=== PATIENT | female | born 1945 | race Caucasian/White ===

== ENCOUNTER → 2017-04-25 | Outpatient (REF) | payer MEDICARE, OTHER ==
[2017-04-25 14:05] LABS: APPEARANCE, URINE HAZY (CLEAR); BACTERIA, URINE AUTO NEGATIVE (NEGATIVE); BILIRUBIN, URINE AUTO NEGATIVE (NEGATIVE); BLOOD, URINE BLOOD NEGATIVE (NEGATIVE); COLOR, URINE YELLOW (YELLOW); GLUCOSE, URINE (UA) AUTO NEGATIVE (NEGATIVE); KETONE, URINE AUTO TRACE mg/dL (NEGATIVE); LEUKOCYTE ESTERASE, URINE AUTO 1+ (NEGATIVE); MUCUS, URINE SMALL (NEGATIVE); NITRITE, URINE AUTO NEGATIVE (NEGATIVE); PROTEIN, URINE AUTO NEGATIVE (NEGATIVE); RBC, URINE AUTO 1 /HPF (0-3); SPECIFIC GRAVITY URINE AUTO 1.021 (1.002-1.035); SQUAMOUS EPITHELIAL CELL UR AU 4 /HPF (0-6); UROBILINOGEN, URINE AUTO 0.2 mg/dL (0.0-2.0); WBC, URINE AUTO 2 /HPF (0-3)
== END ==
LOC: M SMT 13:16
DX: N39.41 Urge incontinence (principal)
CPT/HCPCS: 81001

== ENCOUNTER → 2017-04-30 | Outpatient (CLI) | payer MEDICARE, OTHER | LOC: M RAD 12:22 | DX: N39.41 Urge incontinence (principal); Z87.442 Personal history of urinary calculi; N28.1 Cyst of kidney, acquired | CPT/HCPCS: 76775 ==

== ENCOUNTER → 2017-05-19 | Outpatient (REF) | payer MEDICARE, OTHER | LOC: M SMT 17:05 | DX: N39.0 Urinary tract infection, site not specified (principal) | CPT/HCPCS: 87086 ==

== ENCOUNTER → 2017-07-31 | Outpatient (CLI) | payer MEDICARE, OTHER | LOC: M WUC 12:22 | DX: S70.02XA Contusion of left hip, initial encounter (principal); X58.XXXA Exposure to other specified factors, initial encounter; Y92.9 Unspecified place or not applicable | CPT/HCPCS: 73502 ==

== ENCOUNTER → 2017-12-05 | Outpatient (REF) | payer MEDICARE, OTHER ==
[2017-12-05 14:04] LABS: APPEARANCE, URINE CLEAR (CLEAR); BACTERIA, URINE AUTO NEGATIVE (NEGATIVE); BILIRUBIN, URINE AUTO NEGATIVE (NEGATIVE); BLOOD, URINE BLOOD NEGATIVE (NEGATIVE); COLOR, URINE YELLOW (YELLOW); GLUCOSE, URINE (UA) AUTO NEGATIVE (NEGATIVE); KETONE, URINE AUTO NEGATIVE (NEGATIVE); LEUKOCYTE ESTERASE, URINE AUTO NEGATIVE (NEGATIVE); NITRITE, URINE AUTO NEGATIVE (NEGATIVE); PROTEIN, URINE AUTO NEGATIVE (NEGATIVE); RBC, URINE AUTO 1 /HPF (0-3); SPECIFIC GRAVITY URINE AUTO 1.016 (1.002-1.035); SQUAMOUS EPITHELIAL CELL UR AU 1 /HPF (0-6); UROBILINOGEN, URINE AUTO 0.2 mg/dL (0.0-2.0); WBC, URINE AUTO 1 /HPF (0-3)
== END ==
LOC: M SMT 13:42
DX: R35.0 Frequency of micturition (principal)
CPT/HCPCS: 81001

== ENCOUNTER → 2018-01-27 | Outpatient (REF) | payer MEDICARE, OTHER ==
[2018-01-27 14:05] LABS: DRVV SCREEN 34.8 SEC; FOLATE 14.4 NG/ML; RHEUMATOID FACTOR QUANT < 10.0 IU/ML (<15.0); TOTAL PROTEIN 6.8 GM/DL (6.4-8.2); VITAMIN B12 LEVEL 626 PG/ML
[2018-01-27 14:12] LABS: PTT LUPUS TYPE ANTICOAG SCREEN 0.9 (0-1.2)
[2018-01-27 14:16] LABS: ERYTHROCYTE SEDIMENTATION RATE 11 mm/hr (0-30)
[2018-01-28 08:09] LABS: ALBUMIN 3.99 GM/DL (3.29-5.55); ALBUMIN % 58.7 % (55.8-66.1); ALPHA-1-GLOBULIN % 4.3 % (2.9-4.9); ALPHA-1-GLOBULINS 0.29 GM/DL (0.17-0.41); ALPHA-2-GLOBULINS 0.75 GM/DL (0.42-0.99); ALPHA-2-GLOBULINS % 11.1 % (7.1-11.8)
[2018-01-28 08:11] LABS: BETA-1-GLOBULINS 0.41 GM/DL (0.28-0.60); BETA-2-GLOBULINS 0.41 GM/DL (0.19-0.55); BETA-2-GLOBULINS % 6.1 % (3.2-6.5); GAMMA GLOBULIN % 13.8 % (11.1-18.8); GAMMA GLOBULINS 0.94 GM/DL (0.65-1.58)
[2018-01-31 10:10] LABS: ANTINUCLEAR ANTIBODIES DIRECT Negative (Negative); VITAMIN B6,PYRIDOXAL PHOSPHATE 8.2 ug/L (2.0-32.8); VITAMIN E(ALPHA TOCOPHEROL) 9.2 mg/L (9.0-29.0); VITAMIN E(GAMMA TOCOPHEROL) 1.4 mg/L (0.5-4.9)
== END ==
LOC: M LABNEURO 10:29
DX: M54.5 Low back pain (principal); F09 Unspecified mental disorder due to known physiological condition
CPT/HCPCS: 82746

== ENCOUNTER → 2018-08-06 | Outpatient (REF) | payer MEDICARE, OTHER ==
[2018-08-06 13:30] LABS: INR 0.93; PARTIAL THROMBOPLASTIN TIME 28.4 SECONDS (25.4-37.6); PROTHROMBIN TIME 12.6 SECONDS (12.1-14.4)
== END ==
LOC: M LAB REF 12:29
PROVIDERS: ATTEND Internal Medicine
DX: Z01.818 Encounter for other preprocedural examination (principal)

== ENCOUNTER → 2018-08-11 | Outpatient (REF) | payer MEDICARE, OTHER | LOC: M LAB REF 12:24 | PROVIDERS: ATTEND Nurse Practitioner Family | DX: N39.0 Urinary tract infection, site not specified (principal) ==

== ENCOUNTER → 2018-10-15 | Outpatient (REF) | payer MEDICARE, OTHER ==
[2018-10-15 13:28] LABS: APPEARANCE, URINE CLEAR (CLEAR); BACTERIA, URINE AUTO NEGATIVE (NEGATIVE); BILIRUBIN, URINE AUTO NEGATIVE (NEGATIVE); BLOOD, URINE BLOOD NEGATIVE (NEGATIVE); COLOR, URINE YELLOW (YELLOW); GLUCOSE, URINE (UA) AUTO NEGATIVE (NEGATIVE); KETONE, URINE AUTO TRACE mg/dL (NEGATIVE); LEUKOCYTE ESTERASE, URINE AUTO NEGATIVE (NEGATIVE); NITRITE, URINE AUTO NEGATIVE (NEGATIVE); PROTEIN, URINE AUTO NEGATIVE (NEGATIVE); RBC, URINE AUTO 0 /HPF (0-3); SPECIFIC GRAVITY URINE AUTO 1.017 (1.002-1.035); SQUAMOUS EPITHELIAL CELL UR AU 1 /HPF (0-6); UROBILINOGEN, URINE AUTO 0.2 mg/dL (0.0-2.0); WBC, URINE AUTO 1 /HPF (0-3)
== END ==
LOC: M SMT 13:04
PROVIDERS: ATTEND Nurse Practitioner Women's Health
DX: R35.0 Frequency of micturition (principal)
CPT/HCPCS: 51798; 81001; 87086; G0463

== ENCOUNTER → 2019-07-26 | Outpatient (CLI) | payer MEDICARE, OTHER ==
--- NOTE | 2019-07-26 16:43 | REP ---
RIGHT SMALL FINGER SERIES: FOUR VIEWS. HISTORY: Contusion. FINDINGS: Four views of the right small finger demonstrate mild soft tissue swelling about the PIP joint. There is osteoarthritic spurring at both the PIP and DIP joints of the small finger. No fractures seen. No opaque foreign body is noted. IMPRESSION: No evidence of fracture or opaque foreign body. Mild osteoarthritic spurring. Electronically Signed by Charles Hayward MD 07/26/2019 05:04 P
== END ==
LOC: M WUC 14:14
PROVIDERS: ATTEND Physician Assistant
DX: S60.051A Contusion of right little finger without damage to nail, initial encounter (principal); X58.XXXA Exposure to other specified factors, initial encounter; Y92.9 Unspecified place or not applicable; M19.041 Primary osteoarthritis, right hand

== ENCOUNTER → 2020-03-24 | Outpatient (CLI) | payer SELFPAY | LOC: M LABSMTC 10:46 | PROVIDERS: ATTEND Pediatrics | DX: Z20.822 Contact with and (suspected) exposure to COVID-19 (principal) ==

== ENCOUNTER → 2020-10-13 | Outpatient (CLI) | payer MEDICARE, OTHER ==
--- NOTE | 2020-10-13 12:38 | REP ---
INDICATION: CUNTUSION. COMPARISON: Abdomen/pelvis CT dated 07/07/2015. TECHNIQUE: There are two views. FINDINGS: There is no fracture or dislocation. Mineralization is normal. Joint space is unremarkable. No femoral head deformity. No calcifications or foreign bodies. IMPRESSION: Essentially negative plain film study of the right hip. <Electronically signed by Colton Kuo > 10/13/20 [id number]
== END ==
LOC: M WUC 10:35
PROVIDERS: ATTEND Physician Assistant
DX: S70.01XA Contusion of right hip, initial encounter (principal); X58.XXXA Exposure to other specified factors, initial encounter; Y92.9 Unspecified place or not applicable

== ENCOUNTER → 2020-11-16 | Outpatient (REF) | payer MEDICARE, OTHER ==
[2020-11-16 17:36] LABS: APPEARANCE, URINE HAZY (CLEAR); BACTERIA, URINE AUTO NEGATIVE (NEGATIVE); BILIRUBIN, URINE AUTO NEGATIVE (NEGATIVE); BLOOD, URINE BLOOD NEGATIVE (NEGATIVE); COLOR, URINE YELLOW (YELLOW); GLUCOSE, URINE (UA) AUTO NEGATIVE (NEGATIVE); KETONE, URINE AUTO NEGATIVE (NEGATIVE); LEUKOCYTE ESTERASE, URINE AUTO TRACE (NEGATIVE); MUCUS, URINE SMALL (NEGATIVE); NITRITE, URINE AUTO NEGATIVE (NEGATIVE); PROTEIN, URINE AUTO NEGATIVE (NEGATIVE); RBC, URINE AUTO 1 /HPF (0-3); RENAL EPITHELIAL CELLS 1 /HPF; SPECIFIC GRAVITY URINE AUTO 1.021 (1.002-1.035); SQUAMOUS EPITHELIAL CELL UR AU 4 /HPF (0-6); WBC, URINE AUTO 7 /HPF (0-3)
== END ==
LOC: M SMT 16:58
PROVIDERS: ATTEND Nurse Practitioner Women's Health
DX: R35.0 Frequency of micturition (principal)
CPT/HCPCS: 51798; 81001; 87088; 87186; G0463

== ENCOUNTER → 2021-01-19 | Outpatient (CLI) | payer MEDICARE, OTHER ==
--- NOTE | 2021-01-19 11:33 | REPVR ---
PROCEDURE INFORMATION: Exam: MR Lumbar Spine Without Contrast Exam date and time: 01/19/2021 10:23 AM Age: 75 years old Clinical indication: Low back pain; Prior surgery; Surgery date: 6+ months; Surgery type: Laminectomy 2 years ago; Additional info: Lbp TECHNIQUE: Imaging protocol: Multiplanar magnetic resonance images of the lumbar spine without intravenous contrast. COMPARISON: CT ABD PELVIS WITH CONTRAST 07/07/2015 12:58 PM FINDINGS: Vertebrae: There is stable lumbar levoscoliosis. There is grade 1 retrolisthesis L1 on L2 and L2 on L3. There is grade 1 anterolisthesis of L4 on L5. Vertebral body heights maintained. There is disc desiccation. There is disc height loss greatest at L1-L2 and L2-L3. There are endplate degenerative marrow changes greatest at L2-L3 without suspicious bone marrow lesions. Spinal cord: Conus terminates at T12 and appears normal in signal intensity without intrinsic or extrinsic lesion. L1-L2: There is generalized disc bulge and shallow approximately 3 mm right paracentral protrusion. There is thickening of ligamentum flavum and facet degeneration. There is no significant spinal stenosis. Mild narrowing of right subarticular recess. There is [id number] right and slight left neural foraminal narrowing. L2-L3: There is decompressive laminectomy. There is generalized disc bulge. There is bilateral facet degeneration. There is no significant spinal stenosis. There is moderate bilateral neural foraminal narrowing. L3-L4: There is decompressive laminectomy. There is generalized disc bulge. There is bilateral facet degeneration. There is no significant spinal stenosis. There is moderate overall bilateral neural foraminal narrowing. There is however focal severe narrowing the most medial aspect of the right neural foramen. L4-L5: There is decompressive laminectomy. There is generalized disc bulge. There is bilateral facet degeneration. There is no significant spinal stenosis. There is [id number] bilateral neural foraminal narrowing. L5-S1: There is decompressive laminectomy. There is generalized disc bulge. There is bilateral facet degeneration. There is no significant spinal stenosis. There is mild right and moderate left neural foraminal narrowing. Soft tissues: Unremarkable. IMPRESSION: Degenerative changes as described. No significant lumbar spinal stenosis. There is lumbar neural foraminal narrowing as described. Electronically signed by: Annetta Monae On 01/19/2021 11:32:47 AM
== END ==
LOC: M PLARAD 09:41
PROVIDERS: ATTEND Internal Medicine
DX: M51.26 Other intervertebral disc displacement, lumbar region (principal); M51.27 Other intervertebral disc displacement, lumbosacral region

== ENCOUNTER 2021-04-25 12:05 | Emergency (ER) | payer MEDICARE, OTHER ==
[~2021-04-25] VITALS: Ht 167.6 cm; Wt 81.8 kg
[2021-04-25] MEDS ORDERED: ONDANSETRON 4MG/2ML VIAL IV ONE (12:55)
[2021-04-25] MEDS ORDERED: NS 1,000 ML IV ONE (12:55)
[2021-04-25 13:26] LABS: BASO % 0.1 % (0.0-1.0); HEMATOCRIT 38.6 % (36.0-47.0); HEMOGLOBIN 13.4 g/dl (12.0-15.5); LYMPH # 0.8 10^3/uL (1.5-5.0); LYMPH % 9.5 % (24.0-44.0); MEAN CORPUSCULAR HEMOGLOBIN 30.7 pg (27.0-33.0); MEAN CORPUSCULAR HGB CONC 34.7 g/dl (32.0-36.5); MEAN CORPUSCULAR VOLUME 88.3 fl (80.0-96.0); MONO # 0.6 10^3/uL (0.0-0.8); MONO % 7.2 % (2.0-8.0); NEUTROPHILS # 6.6 10^3/uL (1.5-8.5); NEUTROPHILS % 82.6 % (36.0-66.0); PLATELET COUNT, AUTOMATED 144 10^3/uL (150-450); RED BLOOD COUNT 4.37 10^6/uL (4.00-5.40)
[2021-04-25 13:55] LABS: ALBUMIN 3.2 GM/DL (3.2-5.2); ALT/SGPT 25 U/L (12-78); BILIRUBIN,DIRECT 0.3 MG/DL (0.0-0.2); BILIRUBIN,TOTAL 0.7 MG/DL (0.2-1.0); BLOOD UREA NITROGEN 18 MG/DL (7-18); CARBON DIOXIDE LEVEL 28 MEQ/L (21-32); CHLORIDE LEVEL 101 MEQ/L (98-107); CREATININE FOR GFR 0.83 MG/DL (0.55-1.30); GLOMERULAR FILTRATION RATE > 60.0 (>39); GLUCOSE, FASTING 125 MG/DL (70-100); LIPASE 97 U/L (73-393); POTASSIUM SERUM 3.6 MEQ/L (3.5-5.1); SODIUM LEVEL 139 MEQ/L (136-145); TOTAL PROTEIN 6.8 GM/DL (6.4-8.2)
[2021-04-25] MEDS ORDERED: METOCLOPRAMIDE INJ 10MG/2ML VIAL (J2765 PER 1) IV ONE (14:35)
[2021-04-25 15:16] VITALS: BP 148/65
[2021-04-25] MEDS ORDERED: ONDA4TAB6 PO (16:06)
== END 2021-04-25 17:02 | disposition home or self-care (01) ==
LOC: M ED 12:05
DX: S00.93XA Contusion of unspecified part of head, initial encounter (principal); F07.81 Postconcussional syndrome; U07.1 COVID-19; W10.9XXA Fall (on) (from) unspecified stairs and steps, initial encounter; K58.9 Irritable bowel syndrome, unspecified; Y92.009 Unspecified place in unspecified non-institutional (private) residence as the place of occurrence of the external cause; Y93.9 Activity, unspecified; Y99.9 Unspecified external cause status
CPT/HCPCS: 70450; 72125; 80048; 80076; 83690; 85025; 93041; 96361; 96374; 96375; 99285; J2405; J2765

== ENCOUNTER 2021-04-27 08:46 | Emergency (ER) | payer MEDICARE, OTHER ==
[~2021-04-27 08:46] MED LIST: ONDA4TAB6 PO
[2021-04-27] MEDS ORDERED: NS 1,000 ML IV ONE (10:35)
[2021-04-27] MEDS ORDERED: METOCLOPRAMIDE INJ 10MG/2ML VIAL (J2765 PER 1) IV ONE (10:35)
[2021-04-27 11:04] LABS: BASO % 0.2 % (0.0-1.0); HEMATOCRIT 37.1 % (36.0-47.0); HEMOGLOBIN 12.7 g/dl (12.0-15.5); LYMPH # 0.8 10^3/uL (1.5-5.0); LYMPH % 15.4 % (24.0-44.0); MEAN CORPUSCULAR HGB CONC 34.2 g/dl (32.0-36.5); MEAN CORPUSCULAR VOLUME 87.5 fl (80.0-96.0); MONO # 0.5 10^3/uL (0.0-0.8); MONO % 9.5 % (2.0-8.0); NEUTROPHILS # 3.8 10^3/uL (1.5-8.5); NEUTROPHILS % 74.7 % (36.0-66.0); PLATELET COUNT, AUTOMATED 165 10^3/uL (150-450); RED BLOOD COUNT 4.24 10^6/uL (4.00-5.40); WHITE BLOOD COUNT 5.1 10^3/uL (4.0-10.0)
[2021-04-27 11:40] LABS: BLOOD UREA NITROGEN 18 MG/DL (7-18); CALCIUM LEVEL 8.6 MG/DL (8.8-10.2); CARBON DIOXIDE LEVEL 28 MEQ/L (21-32); CHLORIDE LEVEL 107 MEQ/L (98-107); GLOMERULAR FILTRATION RATE > 60.0 (>39); GLUCOSE, FASTING 108 MG/DL (70-100); POTASSIUM SERUM 3.4 MEQ/L (3.5-5.1); SODIUM LEVEL 143 MEQ/L (136-145)
[2021-04-27] MEDS ORDERED: ONDANSETRON 4MG/2ML VIAL IV ONE (12:00)
[2021-04-27] MEDS ORDERED: PROM25TA12 PO (14:26)
[2021-04-27 14:53] VITALS: BP 142/68
== END 2021-04-27 14:54 | disposition home or self-care (01) ==
LOC: EDBD 08:46 → EDUNIT# 08:46 → M ED 08:46
DX: F07.81 Postconcussional syndrome (principal); R94.31 Abnormal electrocardiogram [ECG] [EKG]; K58.9 Irritable bowel syndrome, unspecified; Z88.0 Allergy status to penicillin; Z88.9 Allergy status to unspecified drugs, medicaments and biological substances; Z79.899 Other long term (current) drug therapy
CPT/HCPCS: 70450; 80048; 85025; 93005; 96374; 96375; 99284; J2405; J2765

== ENCOUNTER → 2021-05-09 | Outpatient (REF) | payer MEDICARE, OTHER ==
[~2021-05-09] MED LIST changes: +PROM25TA12 PO
[2021-05-09 19:08] LABS: APPEARANCE, URINE HAZY (CLEAR); BACTERIA, URINE AUTO NEGATIVE (NEGATIVE); BILIRUBIN, URINE AUTO NEGATIVE (NEGATIVE); BLOOD, URINE BLOOD NEGATIVE (NEGATIVE); CALCIUM OXALATE CRYSTALS LARGE; COLOR, URINE YELLOW (YELLOW); GLUCOSE, URINE (UA) AUTO NEGATIVE (NEGATIVE); KETONE, URINE AUTO NEGATIVE (NEGATIVE); LEUKOCYTE ESTERASE, URINE AUTO TRACE (NEGATIVE); MUCUS, URINE SMALL (NEGATIVE); NITRITE, URINE AUTO NEGATIVE (NEGATIVE); PROTEIN, URINE AUTO 1+ mg/dL (NEGATIVE); RBC, URINE AUTO 2 /HPF (0-3); SPECIFIC GRAVITY URINE AUTO 1.015 (1.002-1.035); SQUAMOUS EPITHELIAL CELL UR AU 1 /HPF (0-6); TRANSITIONAL EPITHELIAL AUTO <1 /HPF; UROBILINOGEN, URINE AUTO 0.2 mg/dL (0.0-2.0); WBC, URINE AUTO 4 /HPF (0-3)
== END ==
LOC: M LAB REF 16:34
PROVIDERS: ATTEND Physician Assistant
DX: N39.0 Urinary tract infection, site not specified (principal)

== ENCOUNTER → 2021-05-30 | Outpatient (REF) | payer MEDICARE, OTHER ==
[2021-05-30 13:16] LABS: APPEARANCE, URINE CLEAR (CLEAR); BACTERIA, URINE AUTO NEGATIVE (NEGATIVE); BILIRUBIN, URINE AUTO NEGATIVE (NEGATIVE); BLOOD, URINE BLOOD NEGATIVE (NEGATIVE); COLOR, URINE YELLOW (YELLOW); GLUCOSE, URINE (UA) AUTO NEGATIVE (NEGATIVE); KETONE, URINE AUTO NEGATIVE (NEGATIVE); LEUKOCYTE ESTERASE, URINE AUTO NEGATIVE (NEGATIVE); NITRITE, URINE AUTO NEGATIVE (NEGATIVE); PROTEIN, URINE AUTO NEGATIVE (NEGATIVE); RBC, URINE AUTO 0 /HPF (0-3); SPECIFIC GRAVITY URINE AUTO 1.014 (1.002-1.035); SQUAMOUS EPITHELIAL CELL UR AU 0 /HPF (0-6); UROBILINOGEN, URINE AUTO 0.2 mg/dL (0.0-2.0); WBC, URINE AUTO 1 /HPF (0-3)
== END ==
LOC: M SMT 12:48
PROVIDERS: ATTEND Nurse Practitioner Women's Health
DX: R39.89 Other symptoms and signs involving the genitourinary system (principal)

== ENCOUNTER → 2021-06-06 | Outpatient (CLI) | payer MEDICARE, OTHER | LOC: M PLAIMG 09:53 | PROVIDERS: ATTEND Urology | DX: Z87.442 Personal history of urinary calculi (principal) ==

== ENCOUNTER → 2021-06-20 | Outpatient (REF) | payer MEDICARE, OTHER | LOC: M LAB REF 12:40 | PROVIDERS: ATTEND Internal Medicine | DX: E27.9 Disorder of adrenal gland, unspecified (principal) ==

== ENCOUNTER → 2021-07-23 | Outpatient (CLI) | payer MEDICARE, OTHER ==
[~2021-07-23] MED LIST changes: +PROHANCE 279.3MG/ML 15ML VIAL As Ordered ONE
== END ==
LOC: M RAD 14:59
PROVIDERS: ATTEND Urology
DX: E27.9 Disorder of adrenal gland, unspecified (principal); R39.89 Other symptoms and signs involving the genitourinary system
CPT/HCPCS: 72197; 74183; A9576

== ENCOUNTER → 2021-07-23 | Outpatient (CLI) | payer MEDICARE, OTHER ==
[~2021-07-23] MED LIST changes: -PROHANCE 279.3MG/ML 15ML VIAL As Ordered ONE
[2021-07-23 09:19] LABS: BLOOD UREA NITROGEN 23 MG/DL (7-18); CALCIUM LEVEL 9.6 MG/DL (8.8-10.2); CARBON DIOXIDE LEVEL 28 MEQ/L (21-32); CHLORIDE LEVEL 108 MEQ/L (98-107); GLOMERULAR FILTRATION RATE > 60.0 (>39); GLUCOSE, FASTING 207 MG/DL (70-100); POTASSIUM SERUM 4.4 MEQ/L (3.5-5.1); SODIUM LEVEL 141 MEQ/L (136-145)
[2021-07-23 11:02] LABS: CORTISOL AM 26.8 UG/DL (4.3-22.4)
== END ==
LOC: M LAB 07-20 16:50
PROVIDERS: ATTEND Urology
DX: E27.9 Disorder of adrenal gland, unspecified (principal)

== ENCOUNTER → 2021-08-28 | Outpatient (REF) | payer MEDICARE, OTHER | LOC: M LAB REF 16:41 | PROVIDERS: ATTEND Internal Medicine | DX: Z01.818 Encounter for other preprocedural examination (principal) ==

== ENCOUNTER → 2021-10-22 | Outpatient (REF) | payer MEDICARE, OTHER ==
[2021-10-22 14:53] LABS: APPEARANCE, URINE MANUAL CLOUDY (CLEAR); BILIRUBIN, URINE MANUAL NEGATIVE (NEGATIVE); COLOR, URINE MANUAL YELLOW (YELLOW); GLUCOSE, URINE (UA) MANUAL NEGATIVE (NEGATIVE); KETONE, URINE MANUAL NEGATIVE (NEGATIVE); PH,URINE MAN 5.5 UNITS (5.0 - 7.0); PROTEIN, URINE MANUAL NEGATIVE (NEGATIVE); UROBILINOGEN, URINE MANUAL NORMAL (NORMAL)
[2021-10-22 14:54] LABS: BLOOD URINE MANUAL TRACE (NEGATIVE); LEUKOCYTE ESTERASE, URINE MAN POSITIVE (NEGATIVE); NITRITE, URINE MANUAL POSITIVE (NEGATIVE)
[2021-10-22 15:20] LABS: BACTERIA, URINE LARGE AMOUNT; RENAL EPITHELIAL CELLS, URINE MOD AMOUNT /hpf; SQUAMOUS EPITHELIAL CELL URINE MOD AMOUNT /hpf (SMALL AMT); TRANSITIONAL EPI CELLS, URINE MOD AMOUNT /hpf; WBC, URINE TNTC /hpf (0-3)
[2021-10-22 15:21] LABS: HYALINE CAST, URINE 0-1 /lpf (0-1)
[2021-10-22 15:22] LABS: MUCUS, URINE SMALL AMOUNT (NEGATIVE)
== END ==
LOC: M SMT 12:24
PROVIDERS: ATTEND Urology
DX: R30.0 Dysuria (principal)

== ENCOUNTER → 2021-10-24 | Outpatient (CLI) | payer MEDICARE, OTHER ==
[~2021-10-24] MED LIST changes: +PROHANCE 279.3MG/ML 15ML VIAL As Ordered ONE
== END ==
LOC: M RAD 11:36
PROVIDERS: ATTEND Internal Medicine
DX: G31.84 Mild cognitive impairment of uncertain or unknown etiology (principal); R26.81 Unsteadiness on feet
CPT/HCPCS: 70553; A9576

== ENCOUNTER → 2021-11-02 | Outpatient (REF) | payer MEDICARE, OTHER ==
[~2021-11-02] MED LIST changes: -PROHANCE 279.3MG/ML 15ML VIAL As Ordered ONE
[2021-11-02 17:43] LABS: APPEARANCE, URINE MANUAL CLOUDY (CLEAR); COLOR, URINE MANUAL YELLOW (YELLOW)
[2021-11-02 17:44] LABS: BILIRUBIN, URINE MANUAL NEGATIVE (NEGATIVE); BLOOD URINE MANUAL POSITIVE (NEGATIVE); GLUCOSE, URINE (UA) MANUAL NEGATIVE (NEGATIVE); KETONE, URINE MANUAL NEGATIVE (NEGATIVE); LEUKOCYTE ESTERASE, URINE MAN POSITIVE (NEGATIVE); NITRITE, URINE MANUAL NEGATIVE (NEGATIVE); PROTEIN, URINE MANUAL NEGATIVE (NEGATIVE); UROBILINOGEN, URINE MANUAL NORMAL (NORMAL)
[2021-11-02 18:15] LABS: BACTERIA, URINE NONE SEEN; CALCIUM OXALATE CRYSTALS,URINE LARGE AMOUNT /hpf; SQUAMOUS EPITHELIAL CELL URINE SMALL AMOUNT /hpf (SMALL AMT)
[2021-11-02 18:16] LABS: AMORPHOUS SEDIMENT, URINE URATES (NEGATIVE); HYALINE CAST, URINE 0-1 /lpf (0-1); MUCUS, URINE SMALL AMOUNT (NEGATIVE)
== END ==
LOC: M SMT 16:40
PROVIDERS: ATTEND Urology
DX: N39.0 Urinary tract infection, site not specified (principal)

== ENCOUNTER 2021-12-02 10:20 | Emergency (ER) | payer MEDICARE, OTHER ==
[~2021-12-02] VITALS: Ht 167.6 cm; Wt 77.3 kg
[2021-12-02 10:20] VITALS: BP 168/76
[2021-12-02] MEDS ORDERED: HYDR-3713 PO (10:32)
[2021-12-02] MEDS ORDERED: IBUP-1114 PO (10:32)
[2021-12-02] MEDS ORDERED: ACET-683 PO (10:32)
[2021-12-02] MEDS ORDERED: PERCOCET 5MG/325MG TAB PO ONE ×2 (11:10→12:35)
[2021-12-02] MEDS ORDERED: IBUP-1022 PO (12:37)
[2021-12-02] MEDS ORDERED: OXYC-517 PO (12:38)
[2021-12-02] MEDS ORDERED: LIDOCAINE 5% (LIDODERM) PATCH TD ONE (12:40)
[2021-12-03] MEDS ORDERED: **NOTE PATIENT COMMENT** MISC XX ONE (01:00)
== END 2021-12-02 13:15 | disposition home or self-care (01) ==
LOC: M ED 10:20
DX: S76.011A Strain of muscle, fascia and tendon of right hip, initial encounter (principal); M62.838 Other muscle spasm; E03.9 Hypothyroidism, unspecified; K58.9 Irritable bowel syndrome, unspecified; Z96.651 Presence of right artificial knee joint; Z87.442 Personal history of urinary calculi; Z88.0 Allergy status to penicillin; Z88.8 Allergy status to other drugs, medicaments and biological substances; Z79.899 Other long term (current) drug therapy; Y92.9 Unspecified place or not applicable; Y93.9 Activity, unspecified

== ENCOUNTER 2021-12-04 08:37 | Emergency (ER) | payer MEDICARE, OTHER ==
[~2021-12-04] VITALS: Ht 167.6 cm; Wt 77.3 kg
[2021-12-04 08:37] VITALS: BP 165/77
[~2021-12-04 08:37] MED LIST changes: +ACET-683 PO; +HYDR-3713 PO; +IBUP-1022 PO; +IBUP-1114 PO; +OXYC-517 PO
== END 2021-12-04 09:21 | disposition left against medical advice (07) ==
LOC: M ED 08:37
DX: Z53.21 Procedure and treatment not carried out due to patient leaving prior to being seen by health care provider (principal)

== ENCOUNTER → 2021-12-12 | Outpatient (REF) | payer MEDICARE, OTHER ==
[2021-12-12 19:35] LABS: APPEARANCE, URINE MANUAL CLEAR (CLEAR); COLOR, URINE MANUAL YELLOW (YELLOW)
[2021-12-12 19:36] LABS: BILIRUBIN, URINE MANUAL NEGATIVE (NEGATIVE); BLOOD URINE MANUAL NEGATIVE (NEGATIVE); GLUCOSE, URINE (UA) MANUAL NEGATIVE (NEGATIVE); KETONE, URINE MANUAL NEGATIVE (NEGATIVE); LEUKOCYTE ESTERASE, URINE MAN TRACE (NEGATIVE); NITRITE, URINE MANUAL NEGATIVE (NEGATIVE); PROTEIN, URINE MANUAL TRACE mg/dL (NEGATIVE); UROBILINOGEN, URINE MANUAL NORMAL (NORMAL)
[2021-12-12 20:03] LABS: BACTERIA, URINE NONE SEEN; CALCIUM OXALATE CRYSTALS,URINE SMALL AMOUNT /hpf; MUCUS, URINE SMALL AMOUNT (NEGATIVE); RBC, URINE NONE SEEN /hpf (0-3); SQUAMOUS EPITHELIAL CELL URINE SMALL AMOUNT /hpf (SMALL AMT)
== END ==
LOC: M SMT 17:21
PROVIDERS: ATTEND Urology
DX: R35.1 Nocturia (principal)

== ENCOUNTER → 2021-12-26 | Outpatient (REF) | payer MEDICARE, OTHER | LOC: M LAB REF 12:49 | PROVIDERS: ATTEND Internal Medicine | DX: M19.90 Unspecified osteoarthritis, unspecified site (principal) ==

== ENCOUNTER → 2022-01-01 | Outpatient (REF) | payer MEDICARE, OTHER ==
[2022-01-01 21:31] LABS: APPEARANCE, URINE MANUAL CLEAR (CLEAR); BILIRUBIN, URINE MANUAL NEGATIVE (NEGATIVE); BLOOD URINE MANUAL NEGATIVE (NEGATIVE); COLOR, URINE MANUAL YELLOW (YELLOW); GLUCOSE, URINE (UA) MANUAL NEGATIVE (NEGATIVE); KETONE, URINE MANUAL NEGATIVE (NEGATIVE); LEUKOCYTE ESTERASE, URINE MAN POSITIVE (NEGATIVE); NITRITE, URINE MANUAL NEGATIVE (NEGATIVE); SPECIFIC GRAVITY,URINE MANUAL 1.025 (1.002-1.035); UROBILINOGEN, URINE MANUAL NORMAL (NORMAL)
[2022-01-01 21:32] LABS: PROTEIN, URINE MANUAL NEGATIVE (NEGATIVE)
[2022-01-01 21:59] LABS: WBC, URINE 30-40 /hpf (0-3)
[2022-01-01 22:00] LABS: BACTERIA, URINE MOD AMOUNT; SQUAMOUS EPITHELIAL CELL URINE SMALL AMOUNT /hpf (SMALL AMT); TRANSITIONAL EPI CELLS, URINE SMALL AMOUNT /hpf
[2022-01-01 22:01] LABS: AMORPHOUS SEDIMENT, URINE SMALL AMOUNT (NEGATIVE); CALCIUM OXALATE CRYSTALS,URINE SMALL AMOUNT /hpf
== END ==
LOC: M LAB REF 21:20
PROVIDERS: ATTEND Physician Assistant Medical
DX: N39.0 Urinary tract infection, site not specified (principal)

== ENCOUNTER → 2022-01-10 | Outpatient (REF) | payer MEDICARE, OTHER | LOC: M LAB REF 16:35 | PROVIDERS: ATTEND Physician Assistant Medical | DX: R19.7 Diarrhea, unspecified (principal) ==

== ENCOUNTER → 2022-02-07 | Outpatient (CLI) | payer MEDICARE, OTHER ==
[2022-02-07 18:02] LABS: BLOOD UREA NITROGEN 20 MG/DL (9-23); CALCIUM LEVEL 9.5 MG/DL (8.3-10.6); CARBON DIOXIDE LEVEL 31 MMOL/L (20-31); CHLORIDE LEVEL 106 MMOL/L (98-107); CREATININE FOR GFR 0.77 MG/DL (0.55-1.30); GLOMERULAR FILTRATION RATE > 60.0 (>39); GLUCOSE, FASTING 163 MG/DL (74-106); POTASSIUM SERUM 4.4 MMOL/L (3.5-5.1); SODIUM LEVEL 144 MMOL/L (136-145)
== END ==
LOC: M WUC 14:54
PROVIDERS: ATTEND Urology
DX: R35.1 Nocturia (principal)

== ENCOUNTER → 2022-04-23 | Outpatient (REF) | payer MEDICARE, OTHER ==
[2022-04-23 14:51] LABS: APPEARANCE, URINE CLEAR (CLEAR); BILIRUBIN, URINE AUTO NEGATIVE (NEGATIVE); BLOOD, URINE BLOOD NEGATIVE (NEGATIVE); COLOR, URINE YELLOW (YELLOW); GLUCOSE, URINE (UA) AUTO NEGATIVE (NEGATIVE); KETONE, URINE AUTO NEGATIVE (NEGATIVE); LEUKOCYTE ESTERASE, URINE AUTO TRACE (NEGATIVE); NITRITE, URINE AUTO NEGATIVE (NEGATIVE); PROTEIN, URINE AUTO NEGATIVE (NEGATIVE); SPECIFIC GRAVITY URINE AUTO 1.026 (1.002-1.035); UROBILINOGEN, URINE AUTO 0.2 mg/dL (0.0-2.0)
[2022-04-23 15:32] LABS: BACTERIA, URINE AUTO NEGATIVE (NEGATIVE); RBC, URINE AUTO 1 /HPF (0-3); SQUAMOUS EPITHELIAL CELL UR AU 2 /HPF (0-6); WBC, URINE AUTO 4 /HPF (0-3)
== END ==
LOC: M SMT 12:58
PROVIDERS: ATTEND Specialist
DX: R35.81 Nocturnal polyuria (principal)

== ENCOUNTER → 2022-04-24 | Outpatient (CLI) | payer MEDICARE, OTHER ==
[2022-04-24 15:53] LABS: BLOOD UREA NITROGEN 26 MG/DL (9-23); CALCIUM LEVEL 9.1 MG/DL (8.3-10.6); CARBON DIOXIDE LEVEL 30 MMOL/L (20-31); CHLORIDE LEVEL 100 MMOL/L (98-107); CREATININE FOR GFR 0.79 MG/DL (0.55-1.30); GLOMERULAR FILTRATION RATE > 60.0 (>39); GLUCOSE, FASTING 136 MG/DL (74-106); SODIUM LEVEL 136 MMOL/L (136-145)
[2022-04-24 16:05] LABS: TOTAL VOLUME, URINE 700 ML
[2022-04-24 16:09] LABS: SODIUM 24 HOUR URINE 89 MMOL/24 (40-220); SODIUM, URINE 128 MMOL/L
== END ==
LOC: M PLALAB 13:23
PROVIDERS: ATTEND Specialist
DX: R35.81 Nocturnal polyuria (principal)

== ENCOUNTER → 2022-05-01 | Outpatient (CLI) | payer MEDICARE, OTHER | LOC: M PLAIMG 12:31 | PROVIDERS: ATTEND Specialist | DX: N20.0 Calculus of kidney (principal) ==

== ENCOUNTER → 2022-05-29 | Outpatient (CLI) | payer MEDICARE, OTHER | LOC: M RAD 10:09 | PROVIDERS: ATTEND Orthopaedic Surgery | DX: M89.9 Disorder of bone, unspecified (principal); Z96.651 Presence of right artificial knee joint | CPT/HCPCS: 78306; A9503 ==

== ENCOUNTER 2022-08-12 11:27 | Outpatient (RCR) | payer MEDICARE, OTHER | END 2022-09-06 | LOC: M PT 11:27 | PROVIDERS: ATTEND Internal Medicine | DX: R26.89 Other abnormalities of gait and mobility (principal) ==

== ENCOUNTER 2022-08-20 10:45 | Emergency (ER) | payer MEDICARE, OTHER ==
[~2022-08-20] VITALS: Ht 167.6 cm; Wt 180.0 kg
[2022-08-20 10:46] VITALS: BP 166/72; TEMP 97.6; O2SAT 97
== END 2022-08-20 14:30 | disposition home or self-care (01) ==
LOC: M ED 10:45
DX: S83.92XA Sprain of unspecified site of left knee, initial encounter (principal); M25.462 Effusion, left knee; W01.0XXA Fall on same level from slipping, tripping and stumbling without subsequent striking against object, initial encounter; K58.9 Irritable bowel syndrome, unspecified; Z88.0 Allergy status to penicillin; Z88.8 Allergy status to other drugs, medicaments and biological substances; Z79.1 Long term (current) use of non-steroidal anti-inflammatories (NSAID)

== ENCOUNTER → 2022-10-31 | Outpatient (CLI) | payer MEDICARE, OTHER ==
[2022-10-31 17:17] LABS: BLOOD UREA NITROGEN 21 MG/DL (9-23); GLOMERULAR FILTRATION RATE > 60.0 (>39)
== END ==
LOC: M WUC 10:24
PROVIDERS: ATTEND Orthopaedic Surgery
DX: M54.50 Low back pain, unspecified (principal)

== ENCOUNTER → 2023-04-22 | Outpatient (REF) | payer MEDICARE, OTHER ==
[2023-04-23 12:08] LABS: ANTINUCLEAR ANTIBODIES DIRECT Negative (Negative)
== END ==
LOC: M LAB REF 13:23
PROVIDERS: ATTEND Internal Medicine
DX: M48.07 Spinal stenosis, lumbosacral region (principal)

== ENCOUNTER → 2023-04-28 | Outpatient (REF) | payer MEDICARE, OTHER ==
[2023-04-28 18:08] LABS: CREATININE, URINE 133.1 MG/DL
[2023-04-28 18:09] LABS: MAU/CREAT RATIO 6.7 MCG/MG (0.0-30.0)
== END ==
LOC: M LAB REF 16:48
PROVIDERS: ATTEND Internal Medicine
DX: Z01.818 Encounter for other preprocedural examination (principal); I10 Essential (primary) hypertension; Z79.899 Other long term (current) drug therapy

== ENCOUNTER → 2023-04-28 | Outpatient (REF) | payer MEDICARE, OTHER ==
[2023-04-28 17:32] LABS: APPEARANCE, URINE HAZY (CLEAR); BACTERIA, URINE AUTO NEGATIVE (NEGATIVE); BILIRUBIN, URINE AUTO NEGATIVE (NEGATIVE); BLOOD, URINE BLOOD NEGATIVE (NEGATIVE); COLOR, URINE YELLOW (YELLOW); GLUCOSE, URINE (UA) AUTO NEGATIVE (NEGATIVE); KETONE, URINE AUTO NEGATIVE (NEGATIVE); LEUKOCYTE ESTERASE, URINE AUTO 1+ (NEGATIVE); MUCUS, URINE SMALL (NEGATIVE); NITRITE, URINE AUTO NEGATIVE (NEGATIVE); PROTEIN, URINE AUTO NEGATIVE (NEGATIVE); RBC, URINE AUTO 1 /HPF (0-3); SPECIFIC GRAVITY URINE AUTO 1.018 (1.002-1.035); SQUAMOUS EPITHELIAL CELL UR AU 6 /HPF (0-6); UROBILINOGEN, URINE AUTO 0.2 mg/dL (0.0-2.0); WBC, URINE AUTO 3 /HPF (0-3)
== END ==
LOC: M SMT 16:47
PROVIDERS: ATTEND Specialist
DX: Z01.818 Encounter for other preprocedural examination (principal); Z79.899 Other long term (current) drug therapy

== ENCOUNTER 2023-05-06 08:18 | Day surgery (SDC) | payer MEDICARE, OTHER ==
[~2023-05-06] VITALS: Ht 167.6 cm; Wt 81.9 kg
[~2023-05-06 08:18] MED LIST changes: +DESM0.2T22 PO; +LEXA1TAB PO; +OMEP-173 PO; +OXYB10TA23 PO; +SYNT75TA PO; +ceFAZolin SOD 2 GM in IV 1 EA IV ONE
[2023-05-06] MEDS ORDERED: MIDAZOLAM INJ 2MG/2ML VIAL As Ordered ONE (08:30)
[2023-05-06] MEDS ORDERED: propofoL 200 MG/20 ML VIAL As Ordered ONE (08:31)
[2023-05-06] MEDS ORDERED: LIDOCAINE 2% 100MG/5ML SDV (FOR ANES.) As Ordered ONE (08:31)
[2023-05-06] MEDS: UNRESOLVED CLARIFICATION ENTRY XX SCH (09:05)
[2023-05-06] MEDS: LR 1,000 ML IV SCH (09:05)
[2023-05-06] MEDS ORDERED: ceFAZolin 2 GM/D5W 50 ML IV BAG As Ordered ONE (09:19)
[2023-05-06] MEDS ORDERED: fentaNYL 100 MCG/2 ML INJECTION As Ordered ONE (09:46)
[2023-05-06] MEDS: LIDOCAINE 1% SDV 30ML VIAL As Ordered ONE (10:02)
[2023-05-06 11:50] VITALS: BP 148/78; TEMP 98.2; O2SAT 96
== END 2023-05-06 12:00 | disposition home or self-care (01) ==
LOC: M SDC 08:18
PROVIDERS: ATTEND Specialist
DX: R35.1 Nocturia (principal); E03.9 Hypothyroidism, unspecified; R73.03 Prediabetes; K44.9 Diaphragmatic hernia without obstruction or gangrene; K58.8 Other irritable bowel syndrome; K57.92 Diverticulitis of intestine, part unspecified, without perforation or abscess without bleeding; K21.9 Gastro-esophageal reflux disease without esophagitis; F41.9 Anxiety disorder, unspecified; F32.A Depression, unspecified; Z79.899 Other long term (current) drug therapy; Z87.891 Personal history of nicotine dependence; Z88.0 Allergy status to penicillin; Z88.8 Allergy status to other drugs, medicaments and biological substances
CPT/HCPCS: 64581; 64590; 76000; C1778; C1787; C1894; J0690; J2250; J3010

== ENCOUNTER → 2023-06-09 | Outpatient (CLI) | payer MEDICARE, OTHER ==
[~2023-06-09] MED LIST changes: -ceFAZolin SOD 2 GM in IV 1 EA IV ONE
== END ==
LOC: M SOG 07:49
PROVIDERS: ATTEND Orthopaedic Surgery
DX: M25.512 Pain in left shoulder (principal)

== ENCOUNTER → 2023-06-12 | Outpatient (REF) | payer MEDICARE, OTHER ==
[2023-06-12 18:03] LABS: AMORPHOUS SEDIMENT SMALL (NEGATIVE); APPEARANCE, URINE CLOUDY (CLEAR); BACTERIA, URINE AUTO 2+ (NEGATIVE); BILIRUBIN, URINE AUTO NEGATIVE (NEGATIVE); BLOOD, URINE BLOOD 2+ (NEGATIVE); COLOR, URINE AMBER (YELLOW); GLUCOSE, URINE (UA) AUTO NEGATIVE (NEGATIVE); KETONE, URINE AUTO TRACE mg/dL (NEGATIVE); LEUKOCYTE ESTERASE, URINE AUTO 3+ (NEGATIVE); MUCUS, URINE SMALL (NEGATIVE); NITRITE, URINE AUTO NEGATIVE (NEGATIVE); PROTEIN, URINE AUTO 1+ mg/dL (NEGATIVE); RBC, URINE AUTO 40 /HPF (0-3); SPECIFIC GRAVITY URINE AUTO 1.017 (1.002-1.035); SQUAMOUS EPITHELIAL CELL UR AU 2 /HPF (0-6); UROBILINOGEN, URINE AUTO 0.2 mg/dL (0.0-2.0); WBC, URINE AUTO TNTC /HPF (0-3)
== END ==
LOC: M SMT 16:53
PROVIDERS: ATTEND Specialist
DX: R35.0 Frequency of micturition (principal)

== ENCOUNTER → 2023-07-17 | Outpatient (CLI) | payer MEDICARE, OTHER | LOC: M PLARAD 14:15 | PROVIDERS: ATTEND Physician Assistant | DX: G31.84 Mild cognitive impairment of uncertain or unknown etiology (principal) ==

== ENCOUNTER → 2023-08-15 | Outpatient (REF) | payer MEDICARE, OTHER ==
[~2023-08-15] MED LIST changes: +ONDA-282 PO; -ONDA4TAB6 PO
[2023-08-15 19:33] LABS: APPEARANCE, URINE CLEAR (CLEAR); BACTERIA, URINE AUTO NEGATIVE (NEGATIVE); BILIRUBIN, URINE AUTO NEGATIVE (NEGATIVE); BLOOD, URINE BLOOD NEGATIVE (NEGATIVE); COLOR, URINE YELLOW (YELLOW); GLUCOSE, URINE (UA) AUTO NEGATIVE (NEGATIVE); KETONE, URINE AUTO NEGATIVE (NEGATIVE); LEUKOCYTE ESTERASE, URINE AUTO NEGATIVE (NEGATIVE); NITRITE, URINE AUTO NEGATIVE (NEGATIVE); PROTEIN, URINE AUTO NEGATIVE (NEGATIVE); RBC, URINE AUTO 0 /HPF (0-3); SPECIFIC GRAVITY URINE AUTO 1.015 (1.002-1.035); SQUAMOUS EPITHELIAL CELL UR AU 1 /HPF (0-6); UROBILINOGEN, URINE AUTO 0.2 mg/dL (0.0-2.0); WBC, URINE AUTO 1 /HPF (0-3)
== END ==
LOC: M SMT 16:59
PROVIDERS: ATTEND Urology
DX: R30.0 Dysuria (principal)

== ENCOUNTER → 2023-09-22 | Outpatient (CLI) | payer MEDICARE, OTHER | LOC: M SOG 07:53 | PROVIDERS: ATTEND Orthopaedic Surgery | DX: Z53.9 Procedure and treatment not carried out, unspecified reason (principal) ==

== ENCOUNTER → 2023-10-12 | Outpatient (REF) | payer MEDICARE, OTHER ==
[2023-10-12 19:17] LABS: APPEARANCE, URINE CLOUDY (CLEAR); BACTERIA, URINE AUTO 1+ (NEGATIVE); BILIRUBIN, URINE AUTO NEGATIVE (NEGATIVE); BLOOD, URINE BLOOD NEGATIVE (NEGATIVE); COLOR, URINE AMBER (YELLOW); GLUCOSE, URINE (UA) AUTO NEGATIVE (NEGATIVE); KETONE, URINE AUTO TRACE mg/dL (NEGATIVE); LEUKOCYTE ESTERASE, URINE AUTO 2+ (NEGATIVE); MUCUS, URINE SMALL (NEGATIVE); NITRITE, URINE AUTO POSITIVE (NEGATIVE); PROTEIN, URINE AUTO 2+ mg/dL (NEGATIVE); RBC, URINE AUTO 18 /HPF (0-3); SPECIFIC GRAVITY URINE AUTO 1.021 (1.002-1.035); SQUAMOUS EPITHELIAL CELL UR AU 18 /HPF (0-6); TRANSITIONAL EPITHELIAL AUTO 6 /HPF; WBC, URINE AUTO TNTC /HPF (0-3)
== END ==
LOC: M LAB REF 14:00
PROVIDERS: ATTEND Physician Assistant Medical
DX: N39.0 Urinary tract infection, site not specified (principal)

== ENCOUNTER → 2024-03-18 | Outpatient (REF) | payer MEDICARE, OTHER | LOC: M LAB REF 12:49 | PROVIDERS: ATTEND Physician Assistant | DX: B34.9 Viral infection, unspecified (principal) ==

== ENCOUNTER → 2024-03-31 | Outpatient (REF) | payer MEDICARE, OTHER | LOC: M LAB REF 16:11 | PROVIDERS: ATTEND Physician Assistant Medical | DX: N39.0 Urinary tract infection, site not specified (principal) ==

== ENCOUNTER → 2024-04-23 | Outpatient (CLI) | payer MEDICARE, OTHER | LOC: M WUC 13:42 | PROVIDERS: ATTEND Internal Medicine | DX: M25.552 Pain in left hip (principal); M25.562 Pain in left knee; M16.12 Unilateral primary osteoarthritis, left hip ==

== ENCOUNTER → 2024-06-09 | Outpatient (REF) | payer MEDICARE, OTHER | LOC: M LAB REF 17:26 | PROVIDERS: ATTEND Internal Medicine | DX: R32 Unspecified urinary incontinence (principal); N39.0 Urinary tract infection, site not specified ==

== ENCOUNTER → 2024-06-10 | Outpatient (REF) | payer MEDICARE, OTHER ==
[2024-06-10 18:55] LABS: BASO # 0.1 10^3/uL (0.0-0.2); BASO % 0.7 % (0.0-1.0); EOS # 0.1 10^3/uL (0.0-0.5); EOS % 1.6 % (0.0-3.0); HEMOGLOBIN 12.1 g/dl (12.0-15.5); LYMPH # 2.7 10^3/uL (1.5-5.0); LYMPH % 31.5 % (24.0-44.0); MEAN CORPUSCULAR HEMOGLOBIN 31.2 pg (27.0-33.0); MEAN CORPUSCULAR HGB CONC 33.6 g/dl (32.0-36.5); MEAN CORPUSCULAR VOLUME 92.8 fl (80.0-96.0); MONO # 0.6 10^3/uL (0.0-0.8); NEUTROPHILS # 5.1 10^3/uL (1.5-8.5); NEUTROPHILS % 58.9 % (36.0-66.0); PLATELET COUNT, AUTOMATED 185 10^3/uL (150-450); RED BLOOD COUNT 3.88 10^6/uL (4.00-5.40); WHITE BLOOD COUNT 8.6 10^3/uL (4.0-10.0)
[2024-06-10 19:20] LABS: MAGNESIUM LEVEL 1.9 MG/DL (1.8-2.4)
[2024-06-10 19:21] LABS: PERCENT SATURATION 24.2 % (13.2-45.0)
[2024-06-10 19:23] LABS: FERRITIN 61.1 NG/ML (7.3-270.7)
[2024-06-10 19:24] LABS: TOTAL 25(OH) VITAMIN D 14.3 NG/ML (20.0-100.0)
== END ==
LOC: M SFHCRHEU 14:39
PROVIDERS: ATTEND Internal Medicine
DX: R53.82 Chronic fatigue, unspecified (principal); M79.10 Myalgia, unspecified site

== ENCOUNTER → 2024-06-22 | Outpatient (REF) | payer MEDICARE, OTHER ==
[2024-06-22 15:33] LABS: APPEARANCE, URINE HAZY (CLEAR); BACTERIA, URINE AUTO NEGATIVE (NEGATIVE); BILIRUBIN, URINE AUTO NEGATIVE (NEGATIVE); BLOOD, URINE BLOOD NEGATIVE (NEGATIVE); COLOR, URINE YELLOW (YELLOW); GLUCOSE, URINE (UA) AUTO NEGATIVE (NEGATIVE); KETONE, URINE AUTO NEGATIVE (NEGATIVE); LEUKOCYTE ESTERASE, URINE AUTO TRACE (NEGATIVE); NITRITE, URINE AUTO NEGATIVE (NEGATIVE); PROTEIN, URINE AUTO NEGATIVE (NEGATIVE); RBC, URINE AUTO 0 /HPF (0-3); SPECIFIC GRAVITY URINE AUTO 1.014 (1.002-1.035); SQUAMOUS EPITHELIAL CELL UR AU 1 /HPF (0-6); UROBILINOGEN, URINE AUTO 0.2 mg/dL (0.0-2.0); WBC, URINE AUTO 2 /HPF (0-3)
== END ==
LOC: M SMT 14:54
PROVIDERS: ATTEND Specialist
DX: R39.89 Other symptoms and signs involving the genitourinary system (principal)